=== PATIENT | female | born 1945 | race Caucasian/White ===

== ENCOUNTER 2021-06-09 11:58 | Observation (INO) | payer MEDICARE ==
[~2021-06-09] VITALS: Ht 165.1 cm; Wt 105.3 kg
--- NOTE | 2021-06-09 12:01 | PHYS DOC ---
Past History Past Medical History: A-Fib, Diabetes, High Cholesterol, Hypertension, Stroke Smoking: Non-smoker Alcohol Use: None Drug Use: None General Adult HPI: HPI: Patient is a 75-year-old female brought in by her for speech difficulty and confusion. He reports that he and his had gone to have breakfast with some friends, the number driving around and [facility] before they return home to [place], [place]. When he got back into the vehicle, he asked her question and she appeared to be unable to answer, and he indicates that she seemed to lack the ability to form words. He said he looked at her face and noticed that her tongue seem to be moving in an awkward position. He denied seeing any facial droop. Symptoms began about 15 to 20 minutes prior to their arrival. On arrival, she is already improving. She has chronic weakness, mostly in her lower extremities. She is largely seated in a wheelchair, does occasionally use a walker, but is minimally ambulatory at baseline. She has had a previous stroke, many years ago. The patient denies chest pain, dyspnea, dizziness, headache. She denies abdominal pain, nausea or vomiting. She does report feeling confused. She is a very poor historian. Review of systems is somewhat limited secondary to this. Review of Systems: Review of Systems: Review of systems is as per HPI. Physical Exam: PE: Constitutional: Well developed, well nourished, frail and chronically ill- appearing. Not acutely ill-appearing. Nontoxic. HENT: Normocephalic, atraumatic, oropharynx is patent and clear. Mucous members are moist. No facial asymmetry. No facial edema or swelling. External ears are normal bilaterally. TMs are clear bilaterally. Eyes: PERRL, EOMI, conjunctiva normal, no discharge. No nystagmus. No scleral icterus. Neck: Normal range of motion, no tenderness, supple, no stridor. Trachea is midline. No meningismus. Cardiovascular:Heart rate regular rhythm, 2 radial and +2 posterior tibial pulses bilaterally. Lungs & Thorax: Bilateral breath sounds clear to auscultation [] Abdomen: Abdomen is obese, soft, nondistended, nontender to palpation. No CVA tenderness. Skin: Warm, dry, no erythema, no rash. No open wounds. No jaundice. Back: No deformity, no step-off, no tenderness Extremities: No tenderness, no cyanosis, no clubbing, ROM intact, bilateral, symmetric 1+ lower extremity edema. No limb deformity. Pelvis is stable. No calf tenderness. Neurologic: Patient is awake, alert, oriented to person, place, month and year. Cranial nerves II through XII grossly intact. Sensation is grossly intact. Initially, her speech does appear to demonstrate dysarthria, and intermittently expressive aphasia. However, within minutes, her speech becomes fluent and clear. She has diffuse, symmetric bilateral upper and bilateral lower extremity weakness. Initially, she appeared to have some subtle drift of her left lower extremity, but this resolved after a second attempt at exam, within seconds. She has bilateral, symmetric lower extremity weakness. No limb ataxia noted. No gross visual deficits. Psychologic: Affect somewhat anxious, she is pleasant and cooperative. EKG: EKG: EKG is interpreted at 1245 Rhythm is sinus Rate is 63 bpm Reed is left No STEMI Radiology/Procedures: Radiology/Procedures: IMAGING REPORT Signed PATIENT: ABDIEL ENGLAND EACCOUNT: [id number] : 1945 LOCATION: ER AGE: 75 SEX: F EXAM STATUS: REG ER ORD. PHYSICIAN: DILLAN DOMÍNGUEZ DO REASON: weakness PROCEDURE: PORTABLE CHEST 1V EXAM: XR CHEST 1V 06/09/2021 12:21 PM CLINICAL INDICATION: Weakness COMPARISON: None TECHNIQUE: AP upright view of the chest FINDINGS: There is mild elevation of the right hemidiaphragm. The heart and mediastinum are normal. Lungs are well-expanded. No consolidation, pleural effusion, or pneumothorax. Pulmonary vascularity is normal. 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 IMPRESSION: No acute cardiopulmonary abnormality. Electronically signed by: Myranda Velazco MD (06/09/2021 12:55 PM) [id number] DICTATED AND SIGNED BY: MYRANDA VELAZCO MD DATE: 06/09/21 6063 CC: DILLAN DOMÍNGUEZ DO; LINDSEY HOGAN IMAGING REPORT Signed PATIENT: ABDIEL ENGLAND EACCOUNT: [id number] : 1945 LOCATION: ER AGE: 75 SEX: F EXAM STATUS: PRE ER ORD. PHYSICIAN: DILLAN DOMÍNGUEZ DO REASON: code stroke PROCEDURE: CT CODE STROKE HEAD WO STUDY: CT head without contrast INDICATION: Code stroke. COMPARISON: None available. TECHNIQUE: Axial CT imaging through the head without the use of intravenous contrast. Sagittal and coronal reformats were obtained. One or more of the following individualized dose reduction techniques were utilized for this examination: 1. Automated exposure control 2. Adjustment of the mA and/or kV according to patient size 3. Use of iterative reconstruction technique. FINDINGS: Prominent area of hypoattenuation in the right frontoparietal region in keeping with a previous infarct. Background white matter findings most typical of chronic microvascular change. No acute intracranial hemorrhage. No mass effect, midline shift or hydrocephalus. Parenchymal volume loss and intracranial calcific atherosclerosis. Intact calvarium. Mostly opacified right maxillary sinus. Normally aerated mastoid air cells. IMPRESSION: 1. No acute intracranial hemorrhage or CT evidence for an acute cortical infarction. 2. Chronic appearing right frontoparietal infarct and white matter findings most likely related to chronic microvascular ischemic age. If there is ongoing concern for a recent ischemic event MRI is recommended. FOR INTERNAL CODING PURPOSES Critical result: Findings discussed with DILLAN DOMÍNGUEZ on 06/09/2021 at 12:30 PM. RESULT CODE: (C) Electronically signed by: TEDDY BRUSH MD (06/09/2021 12:32 PM) [id number] DICTATED AND SIGNED BY: TEDDY BRUSH MD DATE: 06/09/21 1226 CC: DILLAN DOMÍNGUEZ DO; LIND[facility] HOG[facility] IMAGING REPORT Signed PATIENT: ABDIEL ENGLAND EACCOUNT: [id number] : 1945 LOCATION: ER HOLD AGE: 75 SEX: F EXAM STATUS: ADM IN ORD. PHYSICIAN: DILLAN DOMÍNGUEZ DO REASON: TIA PROCEDURE: CT ANGIOGRAPHY HEAD AND NECK PQRS Compliance Statement: One or more of the following individualized dose reduction techniques were utilized for this examination: 1. Automated exposure control 2. Adjustment of the mA and/or kV according to patient size 3. Use of iterative reconstruction technique CTA HEAD AND NECK W/WO CONTRAST 06/09/2021 3:13 PM INDICATION: TIA COMPARISON: CT head 06/09/2021 TECHNIQUE: Multiple axial CT images of the head were obtained from skull base to the vertex without intravenous contrast. Multiple axial CT images of the head and neck were obtained after the intravenous administration of nonionic contrast. Coronal and sagittal reformats are provided. Maximum intensity projection images are provided. Stenosis calculations for CT, MR, and conventional angiography are based upon measurements of the distal ICA diameter in accordance with the NASCET methodology. Stenosis calculations for carotid ultrasound studies are derived from validated velocity criteria which are known to correlate with the NASCET methodology. FINDINGS: Ventricles, sulci and basal cisterns are normal in appearance.. Remote ischemic changes identified in the right parietal lobe with areas of gliosis. There is no mass, mass effect or midline shift. Posterior fossa is normal in appearance. Sella and suprasellar cistern appear normal. Orbits are normal in appearance . Scalp and calvaria appear intact. Paranasal sinuses are well aerated. Mastoid air cells are well aerated. Visualized portions of lungs are clear. Thyroid gland is normal in appearance. Neck soft tissues are normal in appearance. No pathologically enlarged cervical lymphadenopathy. Pharynx and larynx appear intact. Vascular findings: There is a normal three-vessel aortic arch. Origins of the brachiocephalic vessels are widely patent. Right common carotid artery is normal in course and caliber. Calcified plaque identified at the right carotid bifurcation with 50 percent focal stenosis of the proximal right cervical internal carotid artery (series 4, image 101). External carotid artery is widely patent. Left common carotid artery is normal in course and caliber. Coarse calcified plaque at the left carotid bifurcation with focal 25 percent stenosis of the proximal cervical internal carotid artery (series 4, image 101). External carotid artery is widely patent. Vertebral arteries are normal in course and caliber. Right vertebral artery appears to terminate as the right posterior inferior cerebellar artery. Evaluation of intracranial arterial system is limited by contrast bolus and venous contamination. Intracranial segments of internal carotid arteries are normal in course and caliber. There is mild calcified atheromatous plaque involving the cavernous segments without significant stenosis. Origins of the ophthalmic segments of the internal carotid artery appears widely patent. Middle cerebral arteries are normal in course and caliber with patent sylvian branches. Anterior cerebral arteries are normal in course and caliber. Anterior communicating artery is visualized. Basilar artery is normal in course and caliber. Superior cerebellar arteries are widely patent. Posterior cerebral arteries are normal in course and caliber. There is no aneurysm, vascular malformation or high-grade stenosis/large vessel occlusion involving [place] of [place]. Superior sagittal sinus is patent. IMPRESSION: 1. There is no evidence for acute intracranial hemorrhage. Remote ischemic changes identified in the right parietal lobe. 2. There is 50 percent stenosis of the proximal right cervical internal carotid artery signal calcified atheromatous plaque. There is 25 percent stenosis of the proximal left cervical internal carotid artery secondary to calcified atheromatous plaque. Heart Score: C/O Chest Pain: No Risk Factors: Risk Factors: DM, Current or recent (<one month) smoker, HTN, HLP, family history of CAD, obesity. Risk Scores: Score 0 - 3: 2.5% MACE over next 6 weeks - Discharge Home Score 4 - 6: 20.3% MACE over next 6 weeks - Admit for Clinical Observation Score 7 - 10: 72.7% MACE over next 6 weeks - Early Invasive Strategies Course & Med Decision Making: Course & Med Decision Making Pertinent Labs and Imaging studies reviewed. (See chart for details) The patient has been back at her baseline mental status, without new focal neurologic deficits since shortly after arrival. She is resting comfortably, without complaint. I have discussed all of the findings, differential diagnosis and plan of care with her. I recommend hospitalization, serial neurologic exams. I spoke with Dr. Neves for admission. I also spoke with Dr. Pickett with neurology, who agrees with the plan for admission. Emily Disclaimer: Emily Disclaimer: This electronic medical record was generated, in whole or in part, using a voice recognition dictation system. Departure Departure: Impression: Primary Impression: TIA (transient ischemic attack) Admitting Physician: Zack Neves Condition: STABLE Referrals: LINDSEY HOGAN (PCP) DILLAN DOMÍNGUEZ DO Jun 09, 2021 12:01
[2021-06-09 12:26] LABS: BASO # 0.1 x10^3/uL (0.0-0.2); BASO % 1 % (0-3); EOS # 0.2 x10^3/uL (0.0-0.7); EOS % 2 % (0-3); HEMATOCRIT 49.2 % (36.0-47.0); HEMOGLOBIN 16.2 g/dL (12.0-15.5); LYMPH % 22 % (24-48); MEAN CORPUSCULAR HEMOGLOBIN 30 pg (25-35); MEAN CORPUSCULAR HGB CONC 33 g/dL (31-37); MEAN CORPUSCULAR VOLUME 91 fL (79-100); MONO # 0.8 x10^3/uL (0.0-1.1); MONO % 9 % (0-9); NEUT # 6.2 x10^3uL (1.8-7.7); NEUT % 67 % (31-73); PLATELET COUNT 228 x10^3/uL (140-400); RED BLOOD COUNT 5.44 x10^6/uL (3.50-5.40); RED CELL DISTRIBUTION WIDTH 14.5 % (11.5-14.5); WHITE BLOOD COUNT 9.4 x10^3/uL (4.0-11.0)
--- NOTE | 2021-06-09 12:35 | RAD ---
STUDY: CT head without contrast INDICATION: Code stroke. COMPARISON: None available. TECHNIQUE: Axial CT imaging through the head without the use of intravenous contrast. Sagittal and co stephany reformats were obtained. One or more of the following individualized dose reduction techniques were utilized for this examinat ion: 1. Automated exposure control 2. Adjustment of the mA and/or kV according to patient size 3. Use of iterative reconstruction technique. FINDINGS: Prominent area of hypoattenuation in the right frontoparietal region in keeping with a previous infar ct. Background white matter findings most typical of chronic microvascular change. No acute intracran ial hemorrhage. No mass effect, midline shift or hydrocephalus. Parenchymal volume loss and intracran ial calcific atherosclerosis. Intact calvarium. Mostly opacified right maxillary sinus. Normally aerated mastoid air cells. IMPRESSION: 1. No acute intracranial hemorrhage or CT evidence for an acute cortical infarction. 2. Chronic appearing right frontoparietal infarct and white matter findings most likely related to c hronic microvascular ischemic age. If there is ongoing concern for a recent ischemic event MRI is rec ommended. FOR INTERNAL CODING PURPOSES Critical result: Findings discussed with DILLAN DOMÍNGUEZ on 06/09/2021 at 12:30 PM. RESULT CODE: (C) Electronically signed by: TEDDY BRUSH MD (06/09/2021 12:32 PM) [id number]
[2021-06-09 12:41] LABS: CALCIUM 9.7 mg/dL (8.5-10.1); CREATININE 1.4 mg/dL (0.6-1.0); GFR 36.6; POTASSIUM 4.7 mmol/L (3.5-5.1)
[2021-06-09 12:54] LABS: ALBUMIN/GLOBULIN RATIO 0.7 (1.0-1.7); MAGNESIUM 1.7 mg/dL (1.8-2.4); PHOSPHORUS 3.9 mg/dL (2.6-4.7); TOTAL BILIRUBIN 0.5 mg/dL (0.2-1.0); TOTAL PROTEIN 7.2 g/dL (6.4-8.2)
--- NOTE | 2021-06-09 12:58 | RAD ---
EXAM: XR CHEST 1V 06/09/2021 12:21 PM CLINICAL INDICATION: Weakness COMPARISON: None TECHNIQUE: AP upright view of the chest FINDINGS: There is mild elevation of the right hemidiaphragm. The heart and mediastinum are normal. Lungs are well-expanded. No consolidation, pleural effusion, or pneumothorax. Pulmonary vascularity is normal. 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 IMPRESSION: No acute cardiopulmonary abnormality. Electronically signed by: Myranda Velazco MD (06/09/2021 12:55 PM) [id number]
[2021-06-09] MEDS ORDERED: ASPIRIN 325 MG TABLET PO ONE (14:00)
[2021-06-09] MEDS ORDERED: IOHEXOL 350 MG/ML 100 ML VIAL. ONE (15:07)
[2021-06-09] MEDS ORDERED: CONTRAST GIVEN. MC PRN (15:15)
[2021-06-09] MEDS ORDERED: IOHEXOL 350 MG/ML 100 ML VIAL. IV ONE (15:15)
[2021-06-09] MEDS ORDERED: ACETAMINOPHEN 325 MG TABLET PO PRN (15:30)
[2021-06-09] MEDS ORDERED: ONDANSETRON PF 4 MG/2 ML VIAL. IVP PRN (15:30)
--- NOTE | 2021-06-09 16:41 | RAD ---
PQRS Compliance Statement: One or more of the following individualized dose reduction techniques were utilized for this examinat ion: 1. Automated exposure control 2. Adjustment of the mA and/or kV according to patient size 3. Use of iterative reconstruction technique CTA HEAD AND NECK W/WO CONTRAST 06/09/2021 3:13 PM INDICATION: TIA COMPARISON: CT head 06/09/2021 TECHNIQUE: Multiple axial CT images of the head were obtained from skull base to the vertex without i ntravenous contrast. Multiple axial CT images of the head and neck were obtained after the intravenou s administration of nonionic contrast. Coronal and sagittal reformats are provided. Maximum intensity projection images are provided. Stenosis calculations for CT, MR, and conventional angiography are based upon measurements of the dis richie ICA diameter in accordance with the NASCET methodology. Stenosis calculations for carotid ultraso und studies are derived from validated velocity criteria which are known to correlate with the NASCET methodology. FINDINGS: Ventricles, sulci and basal cisterns are normal in appearance.. Remote ischemic changes identified in the right parietal lobe with areas of gliosis. There is no mass, mass effect or midline shift. Poste rior fossa is normal in appearance. Sella and suprasellar cistern appear normal. Orbits are normal in appearance . Scalp and calvaria appear intact. Paranasal sinuses are well aerated. Mastoid air cells are well aerated. Visualized portions of lungs are clear. Thyroid gland is normal in appearance. Neck soft tissues are normal in appearance. No pathologically enlarged cervical lymphadenopathy. Pharynx and larynx appear intact. Vascular findings: There is a normal three-vessel aortic arch. Origins of the brachiocephalic vessels are widely patent. Right common carotid artery is normal in course and caliber. Calcified plaque identified at the right carotid bifurcation with 50 percent focal stenosis of the proximal right cervical internal carotid a rtery (series 4, image 101). External carotid artery is widely patent. Left common carotid artery is normal in course and caliber. Coarse calcified plaque at the left carot id bifurcation with focal 25 percent stenosis of the proximal cervical internal carotid artery (serie s 4, image 101). External carotid artery is widely patent. Vertebral arteries are normal in course and caliber. Right vertebral artery appears to terminate as t he right posterior inferior cerebellar artery. Evaluation of intracranial arterial system is limited by contrast bolus and venous contamination. Intracranial segments of internal carotid arteries are normal in course and caliber. There is mild ca lcified atheromatous plaque involving the cavernous segments without significant stenosis. Origins of the ophthalmic segments of the internal carotid artery appears widely patent. Middle cerebral arteri es are normal in course and caliber with patent sylvian branches. Anterior cerebral arteries are nor mal in course and caliber. Anterior communicating artery is visualized. Basilar artery is normal in course and caliber. Superior cerebellar arteries are widely patent. Poste rior cerebral arteries are normal in course and caliber. There is no aneurysm, vascular malformation or high-grade stenosis/large vessel occlusion involving c [place] of [place]. Superior sagittal sinus is patent. IMPRESSION: 1. There is no evidence for acute intracranial hemorrhage. Remote ischemic changes identified in the right parietal lobe. 2. There is 50 percent stenosis of the proximal right cervical internal carotid artery signal calcifi ed atheromatous plaque. There is 25 percent stenosis of the proximal left cervical internal carotid a rtery secondary to calcified atheromatous plaque. 3. Evaluation of the intracranial vasculature is limited by contrast bolus venous contamination. Ther e is no aneurysm, vascular malformation or high-grade stenosis/large vessel occlusion involving the c [place]le of [place]. Electronically signed by: Angela Cano MD (06/09/2021 4:39 PM) [facility]
[2021-06-09 18:31] LABS: CLARITY,URINE CLOUDY; COLOR,URINE YELLOW; GLUCOSE,URINE NEG (NEG); NITRITE,URINE NEG (NEG); UROBILINOGEN,URINE 0.2 mg/dL (0.2 mg/dL)
[2021-06-09 18:32] LABS: BACTERIA,URINE MANY /HPF (0-FEW); RBC,URINE >40 /HPF (0-2); SQUAMOUS EPITHELIAL CELL,UR FEW /LPF
--- NOTE | 2021-06-09 19:33 | NUR ---
PT ADMITTED TO 109 VIA EMS ACCOMPANIED BY ER STAFF. PT IS AOX4 W/ SLIGHT CONFUSION. VS OBTAINED. PT EATING DINNER W/ AT BEDSIDE.
--- NOTE | 2021-06-09 20:16 | EKG ---
[address] [address] Test Date: 2021-06-09 Test Time: 12:39:00 Pat Name: ABDIEL ENGLAND Department: Room: 109 A Gender: F Social Work Supervisor: : 1945 Requested By: DILLAN DOMÍNGUEZ Order Number: [id number] Reading MD: Yoav Friedman Measurements Intervals [place] Rate: 63 P: -1 [place]: 170 QRS: -3 QRSD: 78 T: 72 QT: 432 QTc: 445 Interpretive Statements SINUS RHYTHM LEFTWARD AXIS QRS(T) CONTOUR ABNORMALITY CONSIDER INFERIOR MYOCARDIAL DAMAGE ST & T ABNORMALITY, CONSIDER HIGH LATERAL ISCHEMIA OR LEFT VENTRICULAR STRAIN ABNORMAL ECG RI6.02 No previous ECG available for comparison Electronically Signed On 06-13-2021 21:44:10 CDT by Yoav Friedman
[2021-06-09 22:11] VITALS: BP 182/101
[2021-06-09 23:34] VITALS: BP 183/82
[2021-06-10 06:06] VITALS: BP 199/94
[2021-06-10] MEDS ORDERED: amLODIPine BESYLATE 10 MG TABLET PO ONE (07:00)
[2021-06-10] MEDS ORDERED: LACT1CAP6 PO (09:06)
[2021-06-10] MEDS ORDERED: MULT-154 PO (09:06)
[2021-06-10] MEDS ORDERED: AMLO-186 PO (09:06)
[2021-06-10] MEDS ORDERED: MYRBETRIQ (09:06)
[2021-06-10] MEDS ORDERED: SOTA80TA20 PO (09:06)
[2021-06-10] MEDS ORDERED: LATA7.5D OU (09:06)
[2021-06-10] MEDS ORDERED: NYST15PO9 TP (09:06)
[2021-06-10] MEDS ORDERED: GABA-586 PO (09:06)
[2021-06-10] MEDS ORDERED: CHOL400T36 PO (09:06)
[2021-06-10] MEDS ORDERED: CARB15DR3 EACHEYE (09:06)
[2021-06-10] MEDS ORDERED: CYAN50009 PO (09:06)
[2021-06-10] MEDS ORDERED: LEVO100C3 PO (09:06)
[2021-06-10] MEDS ORDERED: CALCIUM CITRATE PO (09:06)
[2021-06-10] MEDS ORDERED: TOLT4CAP26 PO (09:06)
[2021-06-10] MEDS ORDERED: ATORVASTATIN CA80 MG PO (09:06)
[2021-06-10] MEDS ORDERED: ISOS30TA68 PO (09:06)
[2021-06-10] MEDS ORDERED: ACET500T68 PO ×3 (09:06)
[2021-06-10] MEDS ORDERED: PYRI50TA PO (09:06)
[2021-06-10] MEDS ORDERED: TOLT4CAP PO (09:06)
[2021-06-10] MEDS ORDERED: ASPI-630 PO (09:06)
[2021-06-10] MEDS ORDERED: MENT118G TP (09:06)
[2021-06-10] MEDS ORDERED: HYDR-2868 PO (09:06)
[2021-06-10] MEDS ORDERED: LOTRISONE CREAM (09:06)
[2021-06-10] MEDS ORDERED: OMEG100021 PO (09:06)
[2021-06-10] MEDS ORDERED: PANT40TA6 PO (09:06)
[2021-06-10] MEDS ORDERED: LOSA50TA86 PO (09:06)
[2021-06-10] MEDS ORDERED: GABA-585 PO ×2 (09:06)
[2021-06-10] MEDS ORDERED: FLAX100031 PO (09:06)
[2021-06-10] MEDS ORDERED: APIX5TAB3 PO (09:06)
[2021-06-10] MEDS ORDERED: POLY17PO5 PO (09:06)
[2021-06-10] MEDS ORDERED: DULO60CA98 PO (09:06)
[2021-06-10] MEDS ORDERED: POTA20TA4 PO (09:06)
[2021-06-10] MEDS ORDERED: DOCU-109 PO (09:06)
[2021-06-10] MEDS ORDERED: [UNRECOGNIZED DRUG - CODE] PO (09:06)
[2021-06-10] MEDS ORDERED: BRIN8DRO OP (09:06)
[2021-06-10 11:00] VITALS: BP 146/63
--- NOTE | 2021-06-10 11:18 | NUR ---
Nursing Note Discharge pt discharged home via wheelchair picked up by . given written and verbal discharge instructions. Pt and given written education about stroke prevention and symptoms. No scripts given.
[2021-06-10 17:20] LABS: CHOLESTEROL/HDL RATIO 2.2
--- NOTE | 2021-06-11 11:42 | CONS ---
DATE OF CONSULTATION: 06/09/2021 NEUROLOGICAL CONSULTATION REFERRING PHYSICIAN: Dr. Neves. REASON FOR CONSULTATION: To rule out TIA versus stroke. HISTORY OF PRESENT ILLNESS: This is a 75-year-old right-handed female who is known to have a history of a stroke affecting her left side in 2011 with minimal residual of weakness of the lower extremities. The patient was found by her having slurred speech and difficulty forming words. On arrival to Emergency Room at [facility], the patient was talking fine. ER physician called me and discussed the case and decided to admit the patient for further evaluation. The patient denies headaches, visual disturbances, nausea, vomiting, chest pain, shortness of breath or palpitation, dysarthria or dysphagia. She is known to have coronary artery disease, required stenting procedures. Initial nonenhanced head CT scan revealed no evidence of acute intracranial process, but shows chronic small vessel ischemic changes and old right parietofrontal infarct. After I discussed the case, we decided to perform a CT angiogram of the neck and brain, which revealed a 50% stenosis of the proximal internal carotid artery, with calcified atheromatous plaque and 25% stenosis of the left cervical internal carotid artery. Otherwise, again, no evidence of acute intracranial process, but shows chronic small vessel ischemic changes. The patient has been using a walker for ambulation. She denies any visual disturbances. PAST MEDICAL HISTORY: Significant for coronary artery disease, required 2 stents placement in 2019, performed at [facility]. She has had paroxysmal atrial fibrillation and she is being followed by a physician at [facility] for that. History of hypertension, osteoarthritis of the back, hands and lower extremities. Hypertension, hyperlipidemia, history of diabetes mellitus, depression, anxiety. FAMILY HISTORY: Noncontributory. SOCIAL HISTORY: The patient is . She denies smoking, alcohol drinking or illicit drug use. CURRENT HOME MEDICATIONS: Amlodipine 5 mg one daily, baby aspirin 81 mg daily, Lipitor 80 mg daily, calcium 630 mg daily, Colace 100 mg p.r.n., Eliquis 5 mg twice daily, fish oil, gabapentin 100 mg 5 tablets daily, hydralazine 25 mg twice daily, isosorbide ER 30 mg daily, levothyroxine 0.1 mg daily, losartan potassium 100 mg p.o. daily, multivitamins, pantoprazole 40 mg twice daily, pravastatin 40 mg daily, potassium chloride 20 mEq ER daily, probiotic 1 daily, Simbrinza eyedrops, sotalol 80 mg p.o. twice daily, Tylenol p.r.n., vitamin B6 and vitamin B12, vitamin C and vitamin D. ALLERGIES: SULFA DRUGS, HYDROCODONE, OXYCODONE. PHYSICAL EXAMINATION: GENERAL: Well-developed, well-nourished female, not in any acute distress. She weighs 105.3 kilos. VITAL SIGNS: Blood pressure 199/94, respiratory rate 18, pulse is 72, oxygen saturation 95% on room air and temperature is 98.3. HEENT: Normocephalic, atraumatic, otherwise unremarkable. NECK: Supple, negative for carotid bruit, lymphadenopathy or thyromegaly. LUNGS: Clear to A and P. CARDIOVASCULAR: Regular rate and rhythm. Normal S1, S2. There is no S3, no S4, murmur. ABDOMEN: Soft. Bowel sounds positive. EXTREMITIES: Negative for cyanosis, clubbing or pedal edema, but she has arthritic changes in both hands. NEUROLOGIC: Mental status: The patient is alert and oriented x 2. The speech is fluent. There is no language dysfunction. Memory, judgment and abstracting thinking are fair. The patient denies hallucination or delusion. Cranial nerves: Visual hollins are full. The pupils are reactive to light and accommodation. The extraocular movements are intact. There is no nystagmus. There is no facial motor or sensory deficits. Hearing is intact bilaterally. The palate is elevated symmetrically. Sternocleidomastoid muscles are powerful bilaterally. The patient shrugs her shoulders symmetrically, protrudes her tongue in the midline without fasciculation or atrophy. Motor exam: No focal muscle bulk wasting. The tone is normal. The strength is 4/5 throughout. Sensory examination revealed normal pinprick, light touch, vibratory and position senses. Deep tendon reflexes were symmetric and hypoactive with absent Achilles responses. Gait: The stance is steady. The patient uses a walker for ambulation. DIAGNOSTIC DATA: Head CT scan, CT angio of the neck and the brain as discussed in the history of present illness. LABORATORY DATA: CBC revealed blood cells of 9.4 thousand, hemoglobin 16.2, hematocrit 49.2, platelet count 228,000. Chemistry revealed sodium of 136, potassium 4.7, chloride 103, CO2 of 27, BUN 21, creatinine 1.4, glucose 192. Liver enzymes are normal. Troponin level one high sensitivity is 15. Urinalysis, trace of urinary leukocyte esterase, white blood cells is 11-20 with many bacteria. IMPRESSION: 1. Possible transient ischemic attack resulting in dysarthria or difficulty finding words - resolved before arrival to the Emergency Room. 2. Multiple medical problems including hypertension, hyperlipidemia, diabetes mellitus, coronary artery disease, status post stenting procedures x2 in 2019, hypothyroidism, osteoarthritis and old stroke in the right frontotemporal regions without significant residual. 3. History of paroxysmal atrial fibrillation. 4. Possible urinary tract infections. 5. Renal insufficiency and possible dehydration. RECOMMENDATIONS: 1. Continue with current care initiated by Dr. Neves and Dr. France. 2. Continue with current home medications. 3. Physical therapy evaluation. 4. Treat the underlying urinary tract infections. 5. Treat the underlying hypertension slowly. RODOLFO/NATHALY DR: Manolo TID: [id number]
--- NOTE | 2021-06-11 11:42 | DS ---
DATE OF DISCHARGE: 06/10/2021 ATTENDING PHYSICIAN: Dr. France FINAL DISCHARGE DIAGNOSES: 1. Transient ischemic attack, symptoms resolved. 2. Labile hypertension. 3. Polypharmacy. 4. Gastroesophageal reflux disease. 5. Hypothyroidism, on replacement. 6. Old frontal stroke with some residual deficits. 7. Multiinfarct dementia. HISTORY AND PHYSICAL: The patient is a 75-year-old female with multiple medical issues. She had TIA symptoms with dysarthria and confusion. She was admitted overnight for observation. PHYSICAL EXAMINATION: Please see the dictated note. PERTINENT LABORATORY AND X-RAY STUDIES: Her CT of the head showed no acute strokes, old frontal lesion identified, which is a completed stroke. Her hemoglobin was 16.2 g/dL with a white count of 9400. Electrolytes within normal range. Creatinine is 1.4 mg percent. Cardiac enzymes negative for coronary ischemia. Nonfasting blood sugar 200s. COURSE IN HOSPITAL: The patient was admitted. She was placed on telemetry monitoring. She had a formal neurology consultation. Recs per Dr. Pickett are on the chart. He recommended conservative therapy and follow up with her PCP, continuation of the aspirin and Eliquis. Diet was advanced. I simplified some of her meds and she did well. By the second hospital day, her vital signs were stable. She was ambulating back to her baseline. At this time, she is discharged home. I suggested she continue her Tylenol p.r.n., amlodipine, Eliquis 5 mg b.i.d., aspirin, Lipitor, carboxymethylcellulose eyedrops, Cymbalta 60 mg daily, hydralazine 3 times a day, Imdur 30 mg daily, latanoprost eyedrops, Synthroid 100 mcg daily, Losartan, Protonix, MiraLax, potassium, and Betapace dose unchanged. For now, I took the liberty of holding her ascorbic acid, cholecalciferol, vitamin B12, docusate, flaxseed, Neurontin, lactobacillus, menthol, multivitamin, Myrbetriq, omega 3 fish oil, pyridoxine, Detrol doses for now. These can be restarted later if needed. The patient was then discharged from our hospital in stable condition with explicit drug and followup care. PERRY/LILI DR: PERRY/matt TID: [id number] CC: LINDSEY HOGAN
--- NOTE | 2021-06-11 11:42 | HP ---
DATE OF SERVICE: 06/10/2021 ADMIT DATE: 06/09/2021 ATTENDING PHYSICIAN: Dr. France CHIEF COMPLAINT: Confusion and word salad. HISTORY OF PRESENT ILLNESS: The patient is a 75-year-old woman brought in by her through the Emergency Department. They were out at [facility], she started having confusion and dizziness along with word salad, difficulty speaking. Symptoms began 15-20 minutes. She has chronic weakness. She is mostly in a wheelchair. She had extensive workup. She has had a previous stroke along with high blood pressure, paroxysmal atrial fibrillation. She was already on Eliquis. The CT of the head in the ED showed no acute changes. She has had an old right frontotemporal infarct. There were no new infarcts, no bleeds. She was admitted then for observation and formal neurologic consultation. PAST MEDICAL HISTORY: Significant for essential hypertension, diabetes, hyperlipidemia. She is on multiple meds. ALLERGIES: SHE HAS ALLERGIES TO SULFA, HYDROCODONE, OXYCODONE. CURRENT MEDICATIONS: At home revealed the following: She was on scheduled Tylenol, p.r.n., amlodipine, Eliquis, ascorbic acid, aspirin, Lipitor, eyedrops, cholecalciferol, cyanocobalamin, docusate, Cymbalta, flaxseed, Neurontin, hydralazine, isosorbide mononitrate, lactobacillus, Latanoprost, Synthroid, losartan, Biofreeze, multivitamin, nystatin, Protonix, MiraLax, potassium, pyridoxine, Betapace, Detrol, calcium and Myrbetriq. SOCIAL HISTORY: She is a nonsmoker, nondrinker. She has had a previous stroke. FAMILY HISTORY: Noncontributory. She is retired, lives with her . REVIEW OF SYSTEMS: Significant for some confusion and some multi-infarct dementia symptoms. All other systems reviewed and turned out to be negative. PHYSICAL EXAMINATION: GENERAL: When I saw her, this is a pleasant elderly female. VITAL SIGNS: Her initial vital signs showed a blood pressure of 160 systolic. Her pulse is 62 and regular. She was afebrile. Oxygen saturation 95% on room air. HEENT: Head is without trauma. Pupils are reactive. Sclerae nonicteric. Oropharynx is clear. NECK: Supple, no bruits. LUNGS: Clear. CARDIOVASCULAR: Regular heart tones. ABDOMEN: Soft. EXTREMITIES: Without edema. NEUROLOGIC: Mildly confused. PERTINENT LABORATORY STUDIES: Creatinine is 1.4 mg%, hemoglobin 16.2 g, white count 9400. Imaging studies showed no acute strokes. Head and neck CT showed no evidence of hemodynamically significant stenosis. There is no aneurysm identified. Chest x-ray was clear. ASSESSMENT: 1. A 75-year-old female with transient ischemic attacks. 2. Labile hypertension. 3. Old stroke. 4. Multi-infarct dementia. 5. Polypharmacy. PLAN: 1. Observation status. 2. Formal Neurology consultation. 3. Continue Eliquis. 4. Meds have been simplified. 5. Diet as tolerated. PERRY/OUMOU DR: Carmen TID: [id number] CC: Dr. Meza
== END 2021-06-10 11:15 | disposition home or self-care (01) ==
LOC: ER 11:58 → ER HOLD 15:24 → INTOOBSV 15:24 → 1 SOUTH 17:04
PROVIDERS: ADMIT Internal Medicine; ATTEND Internal Medicine
DX: G45.9 Transient cerebral ischemic attack, unspecified (principal); I10 Essential (primary) hypertension; F01.50 Vascular dementia, unspecified severity, without behavioral disturbance, psychotic disturbance, mood disturbance, and anxiety; E11.9 Type 2 diabetes mellitus without complications; E78.5 Hyperlipidemia, unspecified; E03.9 Hypothyroidism, unspecified; E78.00 Pure hypercholesterolemia, unspecified; I25.10 Atherosclerotic heart disease of native coronary artery without angina pectoris; I48.0 Paroxysmal atrial fibrillation; I69.311 Memory deficit following cerebral infarction; K21.9 Gastro-esophageal reflux disease without esophagitis; N28.9 Disorder of kidney and ureter, unspecified; Z79.01 Long term (current) use of anticoagulants; Z79.82 Long term (current) use of aspirin; Z79.899 Other long term (current) drug therapy; Z87.891 Personal history of nicotine dependence; Z95.5 Presence of coronary angioplasty implant and graft
CPT/HCPCS: 36415; 70450; 70496; 70498; 71045; 80053; 80061; 81001; 82947; 83735; 83880; 84100; 84484; 85025; 87077; 87086; 87186; 93005; 97161; 97166; 97535; 99285; G0378; G0379; Q9967